=== PATIENT | female | born 1960 | race Caucasian/White ===

== ENCOUNTER 2018-07-19 10:20 | Emergency (ER) | payer SELFPAY ==
[2018-07-19] MEDS ORDERED: Ketorolac Tromethamine 60 MG/2 ML VIAL ONE (10:40)
[2018-07-19] MEDS ORDERED: Fentanyl 100 MCG/2 ML VIAL ONE (11:26)
[2018-07-19] MEDS ORDERED: Ketamine 50 MG/ML (10ML VIAL) ONE (11:34)
--- NOTE | 2018-07-19 22:08 | RAD ---
RIGHT WRIST 3 VIEWS: Date: 07/19/18 An impacted fracture of the distal radius is present with slight dorsal displacement of the distal fr agment. There is also a fracture of the ulnar styloid process. The carpal bones are in normal relatio nships. No carpals fractures seen. Metacarpals appear intact. IMPRESSION: Colles' fracture of right wrist. POS: HOME
--- NOTE | 2018-07-19 22:09 | RAD ---
LEFT WRIST TWO VIEWS: Date: 07-19-18 FINDINGS: Post reduction views show significant improvement in alignment of both the distal radial and ulnar fr actures. There is now minimal angulation. Again, it is difficult to assess the carpal bones properly at this point and time. IMPRESSION: Much improved angulation of the distal forearm fractures. POS: HOME
--- NOTE | 2018-07-19 22:09 | RAD ---
LEFT WRIST THREE VIEWS 07/19/18 Comminuted fracture of the distal radius is present with significant posterior displacement and angul ation of the distal fragment. There is also an oblique fracture of the distal ulna with significant a ngulation and displacement of its distal fragment. Due to the deformity of this wrist, it is difficul t to assess the carpal bones well. No gross carpal fractures or dislocations were seen. The radial fr actures likely extend into the radiocarpal joint. IMPRESSION: Markedly displaced fractures of the distal radius and ulna. POS: HOME
== END 2018-07-19 18:56 | disposition home or self-care (01) ==
LOC: BURERS 10:20
DX: S52.531A Colles' fracture of right radius, initial encounter for closed fracture (principal); S52.502A Unspecified fracture of the lower end of left radius, initial encounter for closed fracture; S52.602A Unspecified fracture of lower end of left ulna, initial encounter for closed fracture; K04.7 Periapical abscess without sinus; W19.XXXA Unspecified fall, initial encounter
CPT/HCPCS: 25605; 96372; 99152; 99153; J1885; J3010

== ENCOUNTER 2022-05-21 08:18 | Outpatient (CLI) | payer OTHER ==
[2022-05-21 08:43] LABS: #Basophils 0.1 thou/uL (0.0-0.2); #Eosinphils 0.4 thou/uL (0.0-0.7); #Lymphocytes 2.4 thou/uL (1.20-3.40); #Monocytes 0.8 thou/uL (0.11-0.59); %Basophils 0.7 % (0.0-1.0); %Eosinophils 4.2 % (0.0-10.0); %Lymphocytes 28.1 % (21.0-51.0); %Neutrophils 57.9 % (42.0-75.0); Hemoglobin 14.5 g/dL (12.0-16.0); Mean Corpuscular HGB CONC 33.3 g/dL (32.0-36.0); Mean Corpuscular Hemoglobin 31.8 pg (27.0-31.0); Mean Corpuscular Volume 95.5 fl (78.0-98.0); Mean Platelet Volume 6.9 fL (7.4-10.4); Platelet Count 269 10x3/uL (130-400); RBC Distribution Width 11.9 % (11.5-14.5); Red Blood Cell (RBC) Count 4.54 mill/uL (4.20-5.40); White Blood Cell (WBC) Count 8.6 10x3/uL (4.8-10.8)
[2022-05-21 09:23] LABS: ALT (SGPT) 28 U/L (8-55); AST (SGOT) 22 U/L (5-34); Albumin 4.2 g/dL (3.4-4.8); Alkaline Phosphatase 72 U/L (40-110); Anion Gap 13 mmol/L (10-20); BUN (Urea Nitrogen) 10 mg/dL (9.8-20.1); Bilirubin, Total 0.7 mg/dL (0.2-1.2); Calc. Creatinine Clearance 0 mL/min (70-130); Calcium 9.4 mg/dL (7.8-10.44); Carbon Dioxide 26 mmol/L (23-31); Cardiac Risk 2.7 (Less than 4.5); Chloride 108 mmol/L (98-107); Cholesterol 139 mg/dl (< 200 Desired); Estimated GFR 91; Globulin 2.8 g/dL (2.4-3.5); Glucose 112 mg/dL (80-115); HDL Cholesterol 52 mg/dL (>60 Neg Risk); LDL Cholesterol, Calculated 68 mg/dL; Potassium 3.8 mmol/L (3.5-5.1); Sodium 143 mmol/L (136-145); Triglycerides 94 mg/dL (Less than 150)
== END 2022-05-21 08:19 | disposition home or self-care (01) ==
LOC: BURLAB 08:18
PROVIDERS: ATTEND Physician Assistant
DX: I10 Essential (primary) hypertension (principal)
CPT/HCPCS: 36415; 80050; 80061